=== PATIENT | female | born 2000 | race Two or more races ===

== ENCOUNTER 2019-02-01 01:37 | Inpatient (IN) | payer OTHER ==
[2019-02-01 02:13] LABS: PLATELET COUNT 273 10^3/uL (150-400)
--- NOTE | 2019-02-01 03:40 | EDPHY ---
H & P Stated Complaint: depression thoughts of si Source: Patient, RN/MD Exam Limitations: No limitations - Personal History LMP (Females 10-55): Unknown Current Tetanus/Diphtheria Vaccine: Yes Current Tetanus Diphtheria and Acellular Pertussis (TDAP): Yes - Medical/Surgical History Hx Asthma: No Hx Chronic Respiratory Disease: No Hx Diabetes: No Hx Cardiac Disease: No Hx Renal Disease: No Hx Cirrhosis: No Hx Alcoholism: No Hx HIV/AIDS: No Hx Splenectomy or Spleen Trauma: No - Social History Smoking Status: Never smoked Time Seen by Provider: 02/01/19 01:50 HPI/ROS: HPI The patient presents with suicidal ideation with plan to take all of her medications. The patient got in the car today with all of her medications and planned to drive to a place where she could take them, instead she came to the hospital. She said she has been feeling increasingly suicidal over the last several days. Earlier in the school year, she was diagnosed with major depressive disorder and started on Lexapro. She saw a physician today and began on the Lexapro taper with plan to start Effexor as the Lexapro was not improving her symptoms. She reports that she is sleeping and in bed for much of the day, yesterday staying in bed until 8:00 p.m.. She is doing poorly in her course work and is at [employer] on scholarship worried that she will need to withdraw from the semester. Her father is facing deportation charges. REVIEW OF SYSTEMS 10 systems were reviewed and negative with the exception of the elements mentioned in the history of present illness. PMHx: Major depressive disorder Soc Hx: College student, denies drugs or alcohol PHYSICAL General Appearance: Alert, no distress Eyes: Pupils equal and round no pallor or injection ENT, Mouth: Mucous membranes moist Respiratory: There are no retractions, lungs are clear to auscultation Cardiovascular: Regular rate and rhythm Gastrointestinal: Abdomen is soft and non-tender, no masses, bowel sounds normal Neurological: A&O, moves all extremities Skin: Warm and dry, no rashes Musculoskeletal: Neck is supple non tender Extremities: symmetrical, full range of motion Psychiatric: Patient is oriented X 3, there is no agitation (Riguzzi,Kathie) Constitutional: Initial Vital Signs Temperature (C) 37 C 02/01/19 01:40 Heart Rate 83 02/01/19 01:40 Respiratory Rate 18 02/01/19 01:40 Blood Pressure 140/95 H 02/01/19 01:40 O2 Sat (%) 96 02/01/19 01:40 O2 Delivery Mode Room Air Allergies/Adverse Reactions: No Known Allergies Allergy (Unverified 02/01/19 01:51) Home Medications: Medication Instructions Recorded Effexor Xr 02/01/19 Hydroxyzine HCl 02/01/19 Lexapro 02/01/19 Medical Decision Making Differential Diagnosis: 18-year-old female presents from home with thoughts of suicide with plan to overdose on her medications. History of major depressive disorder, on medication, increased sleeping, increased social stressors. I have placed the patient on an M1 hold. Basic laboratory testing is all normal. We will await mental health evaluation in the morning. Differential diagnosis includes suicidal ideation with underlying major depressive disorder, acute stress response, less likely polysubstance abuse. Case will be signed out to the oncoming provider Dr. Velazquez. Patient is currently undergoing mental health evaluation at 7:20 a.m.. (Kathie Pineda) Other Provider: Care assumed 0635 plan for psychiatric evaluation; patient on a hold and medically clear by Dr. Pineda. 730: The patient will be transferred to [facility] for inpatient psychiatric hospital bed not available at this facility, in stable condition; accepting provider is Allen Tavares. EMTALA form completed. (Jose Velazquez) - Data Points Laboratory Results: Laboratory Results 02/01/19 02:01 02/01/19 02:01 02/01/19 02/01/19 02/01/19 02:01 02:01 02:01 WBC RBC Hgb Hct MCV MCH MCHC RDW Plt Count MPV Neut % (Auto) Lymph % (Auto) [place] % (Auto) Eos % (Auto) Baso % (Auto) Nucleat RBC Rel Count Absolute Neuts (auto) Absolute Lymphs (auto) Absolute Monos (auto) Absolute Eos (auto) Absolute Basos (auto) Absolute Nucleated RBC Immature Gran % Immature Gran # Sodium 138 mEq/L mEq/L (135-145) Potassium 4.6 mEq/L mEq/L (3.5-5.2) Chloride 108 mEq/L mEq/L (97-110) Carbon Dioxide 20 mEq/l L mEq/l (22-31) Anion Gap 10 mEq/L mEq/L (6-14) BUN 11 mg/dL mg/dL (7-23) Creatinine 0.5 mg/dL L mg/dL (0.6-1.0) Estimated GFR > 60 Glucose 100 mg/dL mg/dL (70-100) Calcium 9.5 mg/dL mg/dL (8.5-10.4) Urine Test NEGATIVE Urine Opiates Screen NEGATIVE (NEGATIVE) Urine Barbiturates NEGATIVE (NEGATIVE) Ur Phencyclidine Scrn NEGATIVE (NEGATIVE) Ur Amphetamine Screen NEGATIVE (NEGATIVE) U Benzodiazepines Scrn NEGATIVE (NEGATIVE) Urine Cocaine Screen NEGATIVE (NEGATIVE) U Marijuana (THC) Screen NEGATIVE (NEGATIVE) Ethyl Alcohol < 10 mg/dL mg/dL (0-10) 02/01/19 02:01 WBC 7.88 10^3/uL 10^3/uL (3.80-9.50) RBC 4.73 10^6/uL 10^6/uL (4.18-5.33) Hgb 14.6 g/dL g/dL (12.6-16.3) Hct 42.2 % % (38.0-47.0) MCV 89.2 fL fL (81.5-99.8) MCH 30.9 pg pg (27.9-34.1) MCHC 34.6 g/dL g/dL (32.4-36.7) RDW 11.9 % % (11.5-15.2) Plt Count 273 10^3/uL 10^3/uL (150-400) MPV 8.6 fL L fL (8.7-11.7) Neut % (Auto) 51.8 % % (39.3-74.2) Lymph % (Auto) 36.2 % % (15.0-45.0) [place] % (Auto) 9.3 % % (4.5-13.0) Eos % (Auto) 1.9 % % (0.6-7.6) Baso % (Auto) 0.5 % % (0.3-1.7) Nucleat RBC Rel Count 0.0 % % (0.0-0.2) Absolute Neuts (auto) 4.09 10^3/uL 10^3/uL (1.70-6.50) Absolute Lymphs (auto) 2.85 10^3/uL 10^3/uL (1.00-3.00) Absolute Monos (auto) 0.73 10^3/uL 10^3/uL (0.30-0.80) Absolute Eos (auto) 0.15 10^3/uL 10^3/uL (0.03-0.40) Absolute Basos (auto) 0.04 10^3/uL 10^3/uL (0.02-0.10) Absolute Nucleated RBC 0.00 10^3/uL 10^3/uL (0-0.01) Immature Gran % 0.3 % % (0.0-1.1) Immature Gran # 0.02 10^3/uL 10^3/uL (0.00-0.10) Sodium Potassium Chloride Carbon Dioxide Anion Gap BUN Creatinine Estimated GFR Glucose Calcium Urine Test Urine Opiates Screen Urine Barbiturates Ur Phencyclidine Scrn Ur Amphetamine Screen U Benzodiazepines Scrn Urine Cocaine Screen U Marijuana (THC) Screen Ethyl Alcohol Departure - Departure Disposition: Other Psych, Not [facility] Clinical Impression: Severe major depression, Suicidal ideation Condition: Fair Referrals: NONE *PRIMARY CARE P,. [Unknown] - As per Instructions
--- NOTE | 2019-02-01 07:43 | ASMTTCLDSP ---
TLC Discharge Disposition Disposition: Answers: Admit Disposition Notes: Notes: Admit [facility]. Discharge Concerns/Recommendations: Notes: In consultation with [facility] ED physician, Jose Velazquez MD and on-call GROUNDS PERSON, Allen Tavares, both concurred that pt appears to meet 27-65 criteria requiring psychiatric hospitalization as pt appears to be at risk of harm to self due to a mental illness condition. Pt was read the Patient Rights and Responsibilities Statement on 02/01/19 at 0630 hrs, original placed on chart, and was given photocopy of Rights. Pt signed the Patient Rights. Pt was given the 3[facility] prohibited belongings list while in the ED. Was patient given the Answers: Yes Inpatient Behavioral Health Prohibited Belongings List while in the ED? For inpatient Allen Tavares APN admission, the following psychiatrist agreed to accept patient for admission to Behavioral Health ([facility]): Type of Hold: Answers: M1/72-hour Hold Hold initiated by: Answers: ED Physician Date Signed: 02/01/2019 07:43 AM Electronically Signed By:Jc Baird
--- NOTE | 2019-02-01 07:43 | ASMTTLCEVL ---
TLC Evaluation - Basic Information Evaluation Start Date and 02/01/2019 05:45 AM Time Hospital Status Answers: M1 Hold 72-hr M1 Hold Start Date 02/01/2019 03:33 AM and Time Patient statement Notes: Yesterday was a difficult day, a rough week really. Tuesday, I stayed in bed until 8 pm. I then went to the library to study and was thinking I should withdraw from this semester because Im not doing very well. Tuesday, I called my scholarship liaison, Juan and told him about my worsening depression and having suicidal thoughts. He suggested I consider withdrawing for this semester. Once I hung up, I felt panic, felt Im a failure, letting people down. Then I went to [facility] for awhile and calmed down then went home. My mother called me shes not very understanding of my depression and she suggested I move in with her up in [place] that would make things worse for me. My suicidal thoughts started about a month ago with periodic thoughts of this is terrible, I wish I was . Then in the past week, I started fantasizing about my . I started thinking about arranging my affairs, thinking about how to do it in the least painful way. I was debating with myself, telling myself, do it, dont do it. Yesterday, I got into my car with all my meds and a bottled water with plan to drive somewhere I could take all the meds and see what would happen, but instead I came to the emergency room. Narrative Notes: Pt is a 18 yo, single, not working, female with reported history of major depression, initially self-presented to [facility] ED on a voluntary basis with chief complaint of suicidal ideation with plan to overdose on her prescription medication. 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 Increased social stressors father facing deportation, not doing well with her classes. Upon medical clearance, MH evaluation was conducted. Pt appeared clean, neat, well kempt. She was pleasant, calm and cooperative throughout the interview process. She strongly endorsed having current suicidal ideation and ambivalence about killing herself, with plans considered to overdose on her medication. She contracts for safety in hospital setting, however, she endorsed on the BDI, items 2 and 9 as a 3. Pt started working with [facility] therapist, Jeri Plascencia recently over spring. Pt does not have a psychiatrist, her PCP (name unrecalled by pt) is at [facility] in [place]. She started pt on Lexapro 10 mg, then was increased to 20 mg. This week, PCP recommended for pt to begin tapering down to 10 mg for 10 days then switch to Effexor. Diagnosis History Notes: Major depressive disorder, recurrent, severe, which surfaced in April 2018 when she began noticing she was not able to do things as she normally would. Prior suicide attempts Notes: Pt denied any past history of suicide attempts. Prior hospitalizations Notes: Pt denied any prior psychiatric hospitalization history. Treatment Responses Notes: Pt reported Lexapro not working well and PCP has plans to taper pt from 20 mg po daily, tapering down to 10 mg for 10 days then switch to Effexor. History of violence Notes: Pt denied any history of aggression/violence. Pt denied any history of homicidal ideation. Therapist: [facility] - Jeri Plascencia who pt started working with recently over spring. Psychiatrist: No psychiatrist, her PCP (name unrecalled by pt) is at [facility] in [place]. She started pt on Lexapro 10 mg, then was increased to 20 mg. This week, PCP recommended for pt to begin tapering down to 10 mg for 10 days then switch to Effe Medications (name, dosage, route, freq uency) Notes: Lexapro 20 mg po daily, tapering down to 10 mg for 10 days then switch to Effexor. Allergies/Reaction Notes: NKDA. Sleep Notes: Pt reported increased sleep lately. Appetite Notes: WNL. Medical/Surgical history Notes: Noncontributory. Substance use history (frequency, intensity, his tory, duration) Notes: Pt reported having first tried alcohol and marijuana at age 17. She reported she consumes alcohol sometimes on weekends, with last alcohol use was last weekend and she drank one glass of wine. She reported having used marijuana about 15 times total, with last use in August 2018 when she started taking Lexapro. Pt otherwise denied any other history of use of any other illicit substances. BAL was zero. UDS results were negative for all tested substances. Family composition Notes: Parents when pt was 15 yo. Each parent lives near [place], [place]. She has a 10 yo brother under the care of mother. Pt reported that when her father was 19, he was riding with a co-worker and they were pulled over by police. Marijuana was found in the vehicle. At that time, FOC did not speak [place]ian and he got blamed for the marijuana possession. Pt stated that once she turns 19, if she petitioned for FOC to apply for a green card, he would face deportation because of his past legal record. Mother would be eligible for a green card. Need for family Answers: No participation in patient's care Family psychiatric/substance abuse history Notes: Pt reported that her father has had panic attacks but due to cultural reasons and stigma, never sought any professional help. Pt reported having a cousin with history of depression and anxiety. Pt denied any family history of suicide attempts or completions. Developmental history Notes: Pt was born in [place], [place] but grew up living in [place] and [place], [place]. She endorsed having achieved normal childhood developmental milestones. She denied any history of learning challenges or ADD/ADHD. She denied any childhood history of TBIs, LOC or concussions. She denied any childhood experiences of physical, emotional or sexual abuse/trauma. Abuse concerns Answers: None Marital status/children Notes: Pt is single, never , no dependents. She is not involved in a romantic relationship. Living situation Notes: Pt resides in an apartment with a female roommate she reported she is good friends with, but added, My mom thinks my problems are related to my roommate, who is messy. Thats not it. Sexual history/orientation Notes: Not active. Heterosexual. Peer support/family strengths Notes: Pt reported having friends and supports through school, family support. Education level/history Notes: Pt is currently a sophomore at studying political science and has been struggling at school this semester. 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 This ended last week. Notes: None. Legal Notes: Pt denied any arrest/legal history. Orthodoxy/Spiritual Notes: Pt reported having no particular restoration or spiritual beliefs which may impact treatment. Leisure Notes: Pt reported she enjoys painting, going on long walks and hiking, reading, and being with friends. Patient's strengths Answers: Artistic/Creative/Musical (Please select at least TWO strengths): Athletic Honest Insightful Intelligent Responsible/Dependable Willingness [facility] Evaluation - Mental Status Exam Appearance: Answers: Appropriate Clean Well Groomed Neat Eye Contact: Answers: Good/Direct Mood: Answers: Depressed Sad Affect: Answers: Blunted Calm Congruent w/ Mood Sad Behavior: Answers: Appropriate Cooperative Speech: Answers: Relevant Logical Clear Coherent Soft Thought Process: Answers: Organized Oriented Alert Intact Insight: Answers: Good Judgement: Answers: Good Depression Answers: Crying Spells Signs/Symptoms: Difficulty Concentrating Diminished Interest Diminished Pleasure Flat Affect Hopelessness Psychomotor Retardation Sad Mood Worthlessness Anxiety Signs/Symptoms Answers: Panic Attacks Hallucinations: Answers: None Current Stage of Change Answers: Preparation Pt reported to have Answers: Yes suicidal/self-injuring ideation/behavior? Pt reported to be making Answers: Yes suicidal/self-injuring threats? Pt reported to have Answers: No aggression/assault ideation/behavior? Pt reported to be making Answers: No aggression/assault threats? Pt exhibits inability to Answers: No care for self/grave disability? Ideation/behavior is Answers: No chronic? Patient has a specific Answers: Yes plan? Pt has access to means to Answers: Yes execute the plan? Ideation involves Answers: Yes serious/lethal intent? Ideation has Answers: No delusional/hallucinatory content? History of Answers: No aggressive/assaultive ideation, behavior, or threats? History of serious Answers: No physical harm to self/others while in treatment setting? [facility] Evaluation - Suicide/Homicide Risk Suicide Risk Factors: Answers: Anhedonia Lack of Orthodoxy Support Major Depression Single Homicide/violence risk Answers: None factors: Current Suicidal Answers: Yes Ideation? Current Suicidal Ideation Answers: Yes in the Past 48 Hours? Current Suicidal Ideation Answers: Yes in the Past Month? Current Suicidal Answers: Yes Ideation, Worst Ever? Suicide Internal Answers: Absence of Psychosis Protective Factors: Suicide External Answers: Positive Therapeutic Protective Factors: Relationships Ranking of patient's Answers: Severe suicidal risk: Ranking of patient's Answers: Low homicidal risk: [facility] Evaluation - Wrap-up BDI Total Score: 53 BDI Question #2 Score: 3 BDI Question #9 Score: 3 BSS Total Score: 21 AXIS I Diagnosis (include DSM-V and ICD-10 codes), must also be entered in [employer], which is the source of truth. Notes: Major Depressive Disorder, recurrent, severe 296.33 (F33.2) In consultation with [facility] ED physician, Jose Velazquez MD and on-call JAVASCRIPT PROGRAMMER, Allen Tavares, both concurred that pt appears to meet 27-65 criteria requiring psychiatric hospitalization as pt appears to be at risk of harm to self due to a mental illness condition. Pt was read the Patient Rights and Responsibilities Statement on 02/01/19 at 0630 hrs, original placed on chart, and was given photocopy of Rights. Pt signed the Patient Rights. Pt was given the 3N prohibited belongings list while in the ED. Evaluation End Date and 02/01/2019 07:40 AM Time (HH:MM): Date Signed: 02/01/2019 07:42 AM Electronically Signed By:Jc Baird
--- NOTE | 2019-02-01 08:22 | PDCONSULT ---
Professor Of Theater Note: The patient is a 18-year-old female with past medical history of depression and anxiety who presented to the emergency room with concerns of suicidal ideation. The patient's of that last night she became extremely anxious came up with a plan of putting all of her pills and a jar driving somewhere in then taking all of her pills in an attempt to kill herself. She did put all of her hydroxyzine Lexapro and Effexor and bottle packed some water and then started driving. She became scared and then decided to present to the emergency room instead. She denied taking any pills or harming herself in any other way. She denies any complaints at this point in time. Past medical history Depression Anxiety Past surgical history None Social history Does not smoke does not drink does not use any drugs She is a student studying schoox science at [employer] Family history None No known drug allergies Current medications Vistaril Lexapro She is about to start Effexor and stop Lexapro Review of systems Ten point review of systems was negative except as in HPI Examination Vitals Blood pressure 140/95, heart rate 83, respirations 18, saturating 96% on room air, temperature 37 degrees C General mildly overweight 18-year-old female in no acute distress HEENT PERRLA mucous membranes moist pink and acyanotic head is atraumatic normocephalic Lungs are clear to auscultation bilaterally Cardiovascular regular rhythm and rate no murmurs rubs or gallops no peripheral edema no JVD Abdomen soft nontender nondistended in all 4 quadrants no organomegaly no guarding or rebound positive bowel sounds no CVA tenderness Extremities no clubbing cyanosis edema or calf pain Neuro cranial nerves 2-12 intact no focal neurologic deficits Skin no lesions rashes or ecchymosis Lymph- No LAD Assessment plan 18-year-old female with past medical history of depression and anxiety who presented to the ER with suicidal ideation. Patient's labs are all within normal limits she is mildly hypertensive with a blood pressure of 140/95. Other than that her examination and vitals are all within normal limits. I discussed the case with the emergency room physician, and reviewed her chart and labs. Unless her blood pressure remains persistently elevated I would not treat it but it may be something that she needs to follow up on as an outpatient. If her systolic were to remain persistently elevated we could treat with p.r.n. Hydralazine while here. Management of her suicidal ideation per psychiatry and .
[2019-02-01] MEDS ORDERED: ACETAMINOPHEN 325 MG TAB PO PRN (10:37)
[2019-02-01] MEDS ORDERED: LORazepam 0.5 MG TAB PO PRN ×2 (10:37→11:23)
[2019-02-01] MEDS ORDERED: MAGNESIUM HYDROXIDE 30 ML UDCUP PO PRN (10:37)
[2019-02-01] MEDS ORDERED: MAG HYDROX/AL HYDROX/SIMETH 30 ML UDCUP PO PRN (10:37)
--- NOTE | 2019-02-01 11:17 | PDMN ---
Medical Necessity Medical necessity: Pt meets inpt criteria per MD order and [facility] [id number], Major Depressive Disorder, Adult: Inpatient Care, 3 days. 18 y/o w/hx major depression placed on M1 hold for suicidal ideation, admitted w/major depressive disorder, recurrent, severe, pt meets 27-65 criteria requiring psychiatric hospitalization as pt appears to be at risk of harm to self due to a mental illness condition.
[2019-02-01] MEDS ORDERED: traZODone 50 MG TAB PO PRN (11:22)
[2019-02-01] MEDS: SERTRALINE HCL 50 MG TAB PO SCH (12:05)
--- NOTE | 2019-02-01 12:25 | BAPA ---
[f rep st] ADMISSION PSYCHIATRIC ASSESSMENT DATE OF SERVICE: 02/01/2019 CHIEF COMPLAINT: "Just feeling more depressed. I was feeling so depressed, I had a plan to overdose on my medications. When I started feeling that way, I decided to come to the emergency room instead of carrying through with it." HISTORY OF PRESENT ILLNESS: From the ED note dated 02/01/2019, a patient with suicidal ideation, with a plan to overdose on her medications, who presented to the emergency department. The patient reported that she got in her car today with all her medications and planned to drive to a place where she could take them. Instead, the patient aborted the plan and came to the hospital. The patient reported she has been feeling increasingly suicidal over the past several days. The patient was recently diagnosed with major depressive disorder and started on Lexapro. The patient reported poor response from Lexapro. Lexapro was tapered and discontinued, with a plan to start Effexor on an outpatient basis as the patient reported Lexapro was not improving her symptoms. The patient reported hypersomnia, doing poorly with her course work at the [employer], to the point the patient reports she may need to withdraw from this semester. The patient also reports she is overwhelmed and stressed regarding her father facing deportation charges. From the [facility] evaluation dated 02/01/2019 at 5:45 a.m., the patient was placed on a 72-hour M1 hold with a start date and time of 02/01/2019 at 3:33 a.m. The patient reported to the [facility] molder wax ball her suicidal thoughts started about a month ago with periodic thoughts of wishing she were . The patient reported within the last week she started fantasizing about her , started thinking about arranging her affairs, and thinking about how she would complete suicide in the least painful way. The patient was admitted involuntarily, is on an M1 hold due to being a danger to herself, and is hospitalized for safety, crisis stabilization, and medication evaluation. The patient describes to this ETHNOGRAPHER starting Lexapro on of last year. Reports the dose has been increased to 20 mg. The patient reports response to Lexapro has been poor for depression and anxiety symptoms. The patient reports Lexapro was recently tapered and discontinued by her primary care provider on an outpatient basis, with plans to start Effexor. The patient describes current depression symptoms as depressed mood nearly every day all day, diminished interest and pleasure in activities she typically enjoys. The patient reports finding it difficult to fall asleep, and then reports hypersomnia the next morning and reports she finds it difficult to awaken. The patient describes fatigue and loss of energy nearly every day, indecisiveness, and diminished ability to concentrate. Reports that her depression and anxiety symptoms make it difficult for her to focus on her course work. The patient reported suicidal ideation with a plan to overdose prior to this hospitalization. The patient describes anxiety symptoms including excessive worry. Reports she finds it difficult to control her worry, at times feels restless, keyed up, and easily on edge. Has difficulty concentrating, and anxiety causes sleep disturbance. The patient reports no history of abuse. The patient reports no PTSD symptoms. The patient denies other psychiatric symptoms including symptoms of rudy, ADHD, OCD , PTSD, psychosis, and any other symptom of psychiatric disorder not already described above. PAST PSYCHIATRIC HISTORY: The patient reported starting working with [facility] therapist, Jeri Plascencia, recently over spring. The patient currently does not have a psychiatrist. Most recent established medication management was with a primary care provider at [facility] in [place]. The patient was started on Lexapro 10 mg on 2017. Over time, Lexapro was increased to 20 mg with poor response. The patient decided to work with her primary care provider to be tapered off the Lexapro and then switched to Effexor. The patient has not started Effexor. The patient reports a diagnosis history of major depressive disorder. The patient reports her depression started in the summer of 2017. The patient describes no specific triggers for onset of depression. The patient reports no past history of suicide attempts and no past history of psychiatric hospitalizations. ALLERGIES: No known allergies. CURRENT MEDICATIONS: 1. Tylenol 650 mg p.o. q.4 h. p.r.n. 2. Ativan 0.5 mg p.o. q.6 h. p.r.n. 3. Maalox syrup 30 mL p.o. q.6 h. p.r.n. 4. Milk of magnesia 30 mL p.o. daily p.r.n. 5. Zoloft 50 mg p.o. daily. 6. Trazodone 50 mg p.o. at bedtime p.r.n. PAST MEDICAL HISTORY: The patient reports no history of major illnesses or major hospitalizations. SOCIAL HISTORY: The patient currently resides in an apartment in [place], [place] and attends the [employer]. The patient's parents live near [place], [place]. The patient reports she was born in [place], [place] and was raised in [place] in [place], [place]. The patient reports meeting normal childhood developmental milestones. Reports no history of learning delays or difficulties. The patient denies childhood experiences of physical, emotional, or sexual abuse trauma. The patient is currently single, has never been , and has no children. The patient reports she is not currently in a relationship. The patient describes her sexual orientation as heterosexual. Reports she is currently not sexually active. The patient reports having a good support network of friends and family. Reports she currently lives with a female roommate and reports she is good friends with her roommate. The patient is currently a sophomore at studying political science. The patient reports no history of duty. The patient reports no legal history. The patient reports no buddhist or spiritual practice and reports no particular rastafarian or spiritual beliefs which may impact her treatment. The patient reports leisure activities as painting, going on long walks, hiking, reading, and being with friends. SUBSTANCE USE HISTORY: The patient reports she first tried alcohol and marijuana at age 17. Reports she does consume alcohol occasionally on the weekends, with last alcohol use last weekend, and she drank 1 glass of wine. The patient reports using marijuana approximately 15 times total in her lifetime , with last use in August 2018. The patient reports she stopped using marijuana when she started Lexapro. The patient reports no other history of substance use. BAL at time of admission was zero. Urine drug screen results were negative for all tested substances. FAMILY PSYCHIATRIC HISTORY: The patient reports her father having a history of panic attacks, and a cousin with a history of depression and anxiety. The patient reports no family history of suicide attempts or completions. The patient reports no family history of substance abuse. ADMISSION LABS AND STUDIES: 1. CBC within normal limits except MPV was low at 8.6. 2. BMP within normal limits except carbon dioxide was low at 20, and creatinine was low at 0.5. 3. Hemoglobin A1c pending. 4. Liver function normal. 5. Lipid panel within normal limits except cholesterol was low at 138. VLDL cholesterol was elevated at 27. 6. Urine test was negative. 7. Toxicology screen was negative for all the substances that were screened and negative for ethyl alcohol. MENTAL STATUS EXAM: The patient is a well-nourished female looking her stated chronological age. Attire is appropriate, and dress is casual. Grooming status is appropriate. Ambulation is independent. Gait is normal and coordinated. Posture is normal and relaxed. Eye contact is appropriate and adequate. Motor activity is appropriate with purposeful, organized, coordinated movements, with no involuntary movements noted. Attitude is cooperative and friendly. The patient appears attentive and relates well to this interviewer. Language production is spontaneous. Rate, rhythm, and volume are normal. Articulation is clear. The patient reports mood as "depressed" with congruent affect. The patient's thought process is linear and logical with no loose associations, tangential thought, thought blocking, concrete thinking, or any other signs of formal thought disorder. The patient does not report suicidal or homicidal thoughts, ideas, or plans. The patient denies auditory or visual hallucinations. The patient denies delusions. The patient does not appear to be attending to internal stimuli. The patient is oriented to person, place, time, and situation. The patient's attention and concentration are fair. The patient's insight and judgment are poor. No evidence of gross cognitive dysfunction at any point during the interview and no evidence of apparent dysfunction in recent or remote memory noted. The patient does not report undesirable side effects from the current medications. DIAGNOSES: Based on the patient's history and current presentation, the patient 's diagnosis is major depressive disorder, severe, recurrent with anxious distress. FORMULATION: The patient is a 18-year-old female, single, currently a student at [employer], who resides in [place], [place] in an apartment with a female friend, who presents to the hospital involuntarily due to a risk to harm herself and is currently on an M1 hold. The patient requires continued inpatient care because of current depression and recent suicidal ideation with a plan to overdose. The patient presents with problems of increased depression accompanied by suicidal ideation over the past several weeks. The patient's life has been affected by these problems, including reaching a point where she had a plan to overdose. The patient decided to not carry through with the plan and came to the hospital for concern for her safety. The patient reports a history of depression since the summer of 2018 and has been treated with Lexapro 20 mg with poor response. The patient is a high suicide safety risk due to current depression and recent suicidal ideation with a plan to overdose. Protective factors while hospitalized include ongoing safety checks, active involvement in treatment, and support from our treatment team. The patient could benefit from inpatient hospitalization for safety, crisis stabilization, and medication evaluation. PLAN: 1. Medications: After reviewing options, risks, and benefits with the patient , the patient agrees to continue current medications. No other medication changes at this time as more time is needed to determine ongoing tolerability and efficacy. Plan is to continue to observe patient for response and side effects from medications, and ongoing monitoring and evaluation. 2. Review with patient informed consent and recommendations for psychotropic medication treatment listed below 3. Labs: no additional labs at this time 4. Therapy: continue milieu and group therapy 5. Further investigation including gathering information from patients relatives and review of past case records to inform treatment plan. 6. Safety/Wellness plan and follow-up outpatient appointments to be established prior to discharge. Next steps are for patient to meet with care transition manager to plan a safe discharge plan and establish outpatient services for ongoing treatment. 7. Confer with inpatient treatment team regarding treatment plan. 8. Address psychosocial stressors by meeting with medicare contact specialist to establish discharge plan including referrals for outpatient services. 9. Legal status: M1 10. Consider discharge next week if patient is in stable condition, safe, and has a safe discharge plan. ESTIMATED LENGTH OF STAY: 1-3 days PSYCHOTROPIC MEDICATION TREATMENT INFORMED CONSENT and RECOMMENDATIONS: Review nature of condition, diagnosis, and prognosis. Review nature and purpose of psychotropic medication treatment. Review type of psychotropic medications being ordered. Review risk and benefits of psychotropic medication treatment. Review probable length of time will need to take medications. Review risk and benefits of not undergoing psychotropic medication treatment. Review alternative treatments to psychotropic medications. Review psychotropic medications contraindications, drug-drug interactions, side effects, and importance of reporting any side effects to a psychiatric provider or nurse during inpatient hospitalization, and upon discharge to patients psychiatric outpatient provider, primary care provider, or other health dog day care attendant. Review importance of asking a nurse, psychiatric provider, or primary care provider any questions or problems concerning the psychotropic medications. Verify patient understands the information that has been provided, and understands, accepts, and agrees to psychotropic medications. Review patients safety plan and importance of patient to communicate to staff while hospitalized if patient is ever a danger to self/others, or unable to care for self, and upon discharge, the importance for patient to contact [facility] or [facility], or go to the nearest emergency room, if patient is ever a danger to self/others, or unable to care for self. Recommend that upon discharge patient establish medication management treatment with a psychiatric provider, establishes routine therapy appointments, and follow-up with primary care provider. Verify patient understands and agrees to these recommendations. /[id number]/MODL MTDD
[2019-02-02 06:47] VITALS: BP 115/72
[2019-02-02] MEDS: SERTRALINE HCL 50 MG TAB PO SCH (08:08)
--- NOTE | 2019-02-02 08:38 | BDS ---
[f rep st] BEHAVIORAL HEALTH DISCHARGE SUMMARY REASON FOR ADMISSION: From the ED note dated 02/01/2019, the patient presented to the emergency department with suicidal ideation with plan to take all her medications. Patient reportedly got into her car with all her medications and planned to drive to a place where she could take them. Instead, she came to the hospital. The patient reported feeling increasingly suicidal over the last few days. The patient was diagnosed with major depressive disorder and started on Lexapro last year. Response has been poor. The patient was recently tapered off Lexapro with plan to start Effexor. Effexor was not started prior to her presenting to the emergency department. The patient was admitted involuntarily and on an M1 hold due to being a danger to herself. The patient was admitted for safety, crisis stabilization, and medication management. ADMITTING DIAGNOSES: Major depressive disorder, recurrent, severe, with anxious distress. ADMISSION PHYSICAL EXAM: Patient was seen on 02/01/2019 for history and physical consultation, for medical clearance, for inpatient psychiatric hospitalization and treatment. The patient was medically cleared for inpatient psychiatric hospitalization and treatment. For further details, please refer to process consultant note document dated 02/01/2019. ADMISSION LABS: 1. CBC within normal limits except MPV was low at 8.6. 2. BMP within normal limits except carbon dioxide was low at 20 and creatinine was low at 0.5. 3. Hemoglobin A1c within normal limits at 4.9. 4. Liver function within normal limits. 5. Lipid panel within normal limits except cholesterol was low at 138, VLDL cholesterol was elevated at 27. 6. Urine test negative. 7. Toxicology screen negative for all the substances that were screened and negative for ethyl alcohol. MAJOR PROCEDURES OR TESTS: None. HOSPITAL COURSE: The most prominent symptoms and behaviors while the patient was here were reports of moderate anxiety and depression. Zoloft 50 mg p.o. daily was started to target mood symptoms, was tolerated with no report of side effects. Trazodone 50 mg p.o. at bedtime was started to target insomnia symptoms related to depression, was tolerated with no report of side effects and with good response. Patient has improved considerably with no signs of psychiatric symptoms and no psychiatric symptoms expressed. Patient reports she has improved since admission, states to be in stable condition, feels safe to discharge, and she contracts for safety. Patients response to treatment was good. There were no adverse or unexpected results of treatment. The patient was safe throughout stay, active in treatment, engaged in groups, and was appropriate with staff. Patient met with treatment team prior to discharge to assess readiness to discharge and review discharge plan. The treatment team consensus is the patient in stable condition, has a safe discharge plan, and is ready to discharge today. CONDITION AT DISCHARGE: Patient is in stable condition and is no longer a danger to self or others, and is not gravely disabled due to mental illness. Patient is no longer in need of inpatient level of care, and can be safely and effectively treated within the community. The patients level of risk at time of discharge is low. MSE: The patient is casually dressed and with good hygiene , and looks stated age. Patient is sitting, posture is upright, and position is relaxed. Patient appears awake, alert, and responds appropriately and reasonably during interview. Patient is engaged, relates well to interviewer, and emotional facial expression is appropriate to situation and changes appropriately with topic. Patient is cooperative, makes comfortable eye contact , and movements are voluntary, deliberate, coordinated, and smooth and even with no inappropriate movements. Patient makes laryngeal sounds effortlessly and shares conversation appropriately; pace of conversation is appropriate, and stream of talking is fluent; articulation is clear and understandable; word choice is effortless and appropriate for education level; completes sentences, occasionally pausing to think; rate and volume are appropriate for interview and setting. Patient reports mood as euthymic. Patients affect is stable with full variable range, congruent with mood, and appropriate to speech and circumstances. Patient has linear and logical thinking, with no loose associations, tangential thought, thought blocking, concrete thinking, or any other signs of formal thought disorder. Patient denies suicidal and homicidal ideation, and denies hallucinations and delusions. Patient appears to be a reliable historian with sound judgement and good insight into current condition. Patient has no apparent dysfunction in recent or remote memory noted , and no evidence of gross cognitive dysfunction noted at any point during the interview. DISCHARGE DIAGNOSIS: Major depressive disorder, recurrent, severe, with anxious distress. CURRENT MEDICATIONS: After reviewing options, risks and benefits with the patient, patient agrees to continue: 1. Zoloft 50 mg p.o. daily. 2. Trazodone 50 mg p.o. at bedtime as needed for insomnia/sleep. The patient requests prescriptions for these medications at time of discharge and prescriptions for 28 days are provided. Prescriptions are written to be dispensed in 7 day supplies for safety, and patient agrees with this. Prescriptions are reviewed with the patient at time of discharge to ensure accuracy and patient understanding. DISPOSITION: The patient left hospital independently and voluntarily and plans to return to her apartment in [place], [place]. FOLLOWUP: bariatric coordinator reports the appropriate outpatient follow-up services have been established and outpatient appointments have been scheduled. The patient received written instructions with times and dates of outpatient follow-up appointments. The following follow-up recommendations were provided to the patient at discharge: Continue psychotropic medications as prescribed and attend appointments as scheduled. Report any side effects to a psychiatric outpatient provider, a primary care provider, or other health primary care pediatrician. Address any questions or problems concerning the psychotropic medications with a psychiatric outpatient provider, a primary care provider, or other health primary care pediatrician. Contact [facility] or [facility], or go to the nearest emergency room, if you are ever a danger to yourself/others, or unable to care for yourself. As soon as possible, establish a routine medication management treatment with a psychiatric provider, establish routine therapy appointments, and follow-up with a primary care provider. LEGAL COURSE: The patient was admitted involuntarily on an M1 hold for inpatient psychiatric hospitalization and treatment. Patient was discharged today independently and voluntarily. ATTITUDE AT TIME OF DISCHARGE: The patients attitude was positive at time of discharge, and patient reports looking forward to discharging today. The patient reports she feels safe to discharge, is no longer a danger to herself or others, is in stable condition, and contracts for safety. Patient states she will continue medications as prescribed, and establish medication management treatment with an outpatient provider after discharge. Patient reports she understands the information that has been provided to her, and she understands, accepts, and agrees to psychotropic medications. Patient describes internal protective factors as the coping skills she has learned while hospitalized here, and she plans to continue to practice these coping skills after discharge. LABS AND RADIOLOGY STUDIES: There were no pending labs or studies at time of discharge. ADVANCE DIRECTIVES: There were no advance directives on file, and patient was full code during this hospitalization. The following psychotropic medication treatment informed consent and recommendations were provided to the patient at time of discharge. Patient reports she understands, accepts, and agrees to the information that has been provided. PSYCHOTROPIC MEDICATION TREATMENT INFORMED CONSENT and RECOMMENDATIONS: Review nature of condition, diagnosis, and prognosis. Review nature and purpose of psychotropic medication treatment. Review type of psychotropic medications being prescribed. Review risk and benefits of psychotropic medication treatment. Review probable length of time will need to take medications. Review risk and benefits of not undergoing psychotropic medication treatment. Review alternative treatments to psychotropic medications. Review psychotropic medications contraindications, side effects, and importance of reporting any side effects to a psychiatric provider, primary care provider, or other health primary care pediatrician. Review importance of her asking a psychiatric provider or primary care provider any questions or problems concerning the psychotropic medications. Review importance of reporting to a psychiatric provider, primary care provider, or other health primary care pediatrician if she plans to or becomes . Review safety plan and the importance to contact [facility] or [facility] , or go to the nearest emergency room, if ever a danger to yourself/others, or unable to care for yourself. Recommend upon discharge to establish routine medication management treatment with a psychiatric provider, establish routine therapy appointments, and follow-up with a primary care provider. Verify patient understands, accepts, and agrees to the information that has been provided. /[id number]/MODL MTDD
--- NOTE | 2019-02-02 08:39 | ASMTBHMTP ---
Master Treatment Plan Master Treatment Plan Answers: Depressed Mood with for: Suicidal Ideation Date: 02/02/2019 Diagnosis on Admission: Major Depressive Disorder, recurrent, severe 296.33 (F33.2) Expected length of stay: 2-3 Reason for admission: Notes: Pt is a 18 yo, single, not working, female with reported history of major depression, initially self-presented to [facility] ED on a voluntary basis with chief complaint of suicidal ideation with plan to overdose on her prescription medication. 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 Increased social stressors father facing deportation, not doing well with her classes. Upon medical clearance, MH evaluation was conducted. Pt appeared clean, neat, well kempt. She was pleasant, calm and cooperative throughout the interview process. She strongly endorsed having current suicidal ideation and ambivalence about killing herself, with plans considered to overdose on her medication. She contracts for safety in hospital setting, however, she endorsed on the BDI, items 2 and 9 as a 3. Pt started working with [facility] therapist, Jeri Plascencia recently over spring. Pt does not have a psychiatrist, her PCP (name unrecalled by pt) is at [facility] in [place]. She started pt on Lexapro 10 mg, then was increased to 20 mg. This week, PCP recommended for pt to begin tapering down to 10 mg for 10 days then switch to Effexor. Patient's stated presenting problems: Notes: "I was going to try and kill myself. I had a bad panic attack". Patient's goals for treatment: Notes: "Feel better, be able to plan better. I need to look at what I've been doing and how I can do things differently in the future". Patient's strengths: Notes: "I'm pretty good at school and I'm introspective". Identify supports outside of hospital: Notes: "My family, friends, and I have support from ". Discharge criteria: Notes: SI will resolve and ct. will have a plan to safely manage recurrent SI. Initial disposition plan/considerations: Notes: Ct. will participate in unit activities. Master Treatment Plan Required Signatures Psychiatrist signature: Answers: ANNEMARIE CrainP: RN on-shift signature: Answers: RN: Patient signature: Answers: Patient: Date Signed: 02/02/2019 08:38 AM Electronically Signed By:Kandace Bello
--- NOTE | 2019-02-02 08:44 | ASMTCMCOM ---
CM Note CM Note Notes: CC met with ct. to develop MTP. Ct. presented as pleasant and cooperative. Ct. denied current SI. Ct. reported that she made a lot of thinking about the reasons that brought her to the unit. She found out that she has a lot of support from family, friends and [facility] and that she will reach out to her support in the future. Ct. is being discharge today. She has an appointment with her therapist at [facility] at 3:00pm and she is planning on attending it. She plans on spending the weekend with MOC and grandmother in [facility]. Ct. is on board with being discharged. Date Signed: 02/02/2019 08:43 AM Electronically Signed By:Kandace Bello
== END 2019-02-02 11:10 | disposition home or self-care (01) | DRG 885 ==
LOC: BBEH 09:00
PROVIDERS: ADMIT Registered Nurse; ATTEND Registered Nurse
DX: F32.2 Major depressive disorder, single episode, severe without psychotic features (principal); R45.851 Suicidal ideations; F41.9 Anxiety disorder, unspecified
CPT/HCPCS: 80305; G0480